=== PATIENT | male | born 1990 | race Two or more races ===

== ENCOUNTER 2024-12-17 05:35 | Emergency (ER) | payer OTHER ==
[~2024-12-17] VITALS: Ht 170.2 cm; Wt 142.0 kg
[2024-12-17] MEDS ORDERED: METFORMIN HCL500 M4 PO (06:00)
[2024-12-17] MEDS ORDERED: LOSARTAN POTASS50 MG PO (06:00)
[2024-12-17] MEDS ORDERED: ORPHENADRINE CITRATE 30 MG/ML AMPUL IM STA (07:15)
[2024-12-17] MEDS ORDERED: ACETAMINOPHEN 500 MG GEL..CAP PO STA (07:16)
[2024-12-17] MEDS ORDERED: ACETAMINOPHEN 500 MG GEL..CAP PO ONE (07:26)
[2024-12-17] MEDS ORDERED: ORPHENADRINE CITRATE 30 MG/ML AMPUL ONE (07:26)
[2024-12-17 07:50] LABS: BASO % 0.3 % (0.1-1.2); EOS # 0.42 (0.04-0.54); EOS % 4.4 % (0.7-7.0); HEMATOCRIT 44.7 % (40.1-51.0); LYMPH # 1.76 (1.18-3.74); LYMPH % 18.6 % (19.3-53.1); MONO # 0.63 (0.24-0.82); MONO % 6.7 % (4.7-12.5); NEUT # 6.59 (1.56-6.13); NEUT % 69.7 % (34.0-71.1); PLATELET COUNT 177 K/uL (163-369); RED BLOOD COUNT 5.35 M/uL (4.63-6.08); RED CELL DISTRIBUTION WIDTH 12.7 % (11.6-14.4)
[2024-12-17 08:11] LABS: ALBUMIN 3.8 gm/dL (3.4-5.0); BILIRUBIN TOTAL 1.06 mg/dL (0.3-1.2); CALCIUM 8.5 mg/dL (8.5-10.1); CREATININE SERUM 0.86 mg/dL (0.70-1.30); GFR 100.62; GLOBULINA 3.3 G/DL (2.4-3.5); POTASSIUM 4.19 mEq/L (3.5-5.1); TOTAL PROTEIN 7.1 gm/dL (6.4-8.2)
[2024-12-17] MEDS ORDERED: INSULIN REGULAR, HUMAN 1,000 UNIT/10 ML UNITS IV ONE (09:00)
[2024-12-17] MEDS ORDERED: 0.9 % SODIUM CHLORIDE 1,000 ML IV ONE (09:00)
[2024-12-17] MEDS ORDERED: INSULIN REGULAR, HUMAN 1,000 UNIT/10 ML UNITS SUBCUTANEO ONE (11:30)
[2024-12-17] MEDS ORDERED: NORFLEX100MG PO (14:19)
== END 2024-12-17 15:02 | disposition home or self-care (01) ==
LOC: ER 05:35
PROVIDERS: General Practice
DX: M94.0 Chondrocostal junction syndrome [Tietze] (principal); Z88.6 Allergy status to analgesic agent; Z88.0 Allergy status to penicillin